=== PATIENT | female | born 1935 | race Caucasian/White ===

== ENCOUNTER 2017-04-16 10:30 | Inpatient (IN) | payer MEDICARE, OTHER ==
[2017-04-16] MEDS ORDERED: NORMAL SALINE 1000 ML 500 ML IV ONE (11:53)
--- NOTE | 2017-04-16 12:01 | ER Document Report ---
ED Medical Screen (RME) - General Mode of Arrival: Ambulatory Information source: Patient - HPI Patient complains to provider of: Chest pain Onset: This morning Associated Symptoms: Other - see notes above <DOMINIQUE CORTEZ - Last Filed: 04/16/17 13:04> <BRITTON DOMINGUEZ - Last Filed: 04/18/17 10:53> - General Chief Complaint: Chest Pain Stated Complaint: CHEST PAIN Time Seen by Provider: 04/16/17 11:51 Notes: 81 year old female (right knee replacement 04/02/2017) presents to the ED complaining of having left sided chest pain that started this morning at 0200. Patient describes the pain as a 'deep pulling sensation.' Patient's home nurse reports that the patient was complaining of a headache. Nurse noticed that the patient was having an irregular heart rate with no prior history of one. Patient reports that an EKG was done in February 2017 prior to the knee replacement showing a normal tracing. Patient denies any chest discomfort at this time. Denies any fever. Denies having pain like this in the past. (DOMINIQUE CORTEZ) - Related Data Allergies/Adverse Reactions: tetracycline Allergy (Verified 04/16/17 12:54) Past Medical History - General Information source: Patient - Social History Chew tobacco use (# tins/day): No Frequency of alcohol use: None Drug Abuse: None - Past Medical History Cardiac Medical History: Reports: Hx Hypercholesterolemia Renal/ Medical History: Denies: Hx Peritoneal Dialysis Past Surgical History: Reports: Hx Orthopedic Surgery - right knee 04/02/18 <DOMINIQUE CORTEZ - Last Filed: 04/16/17 13:04> Review of Systems - Review of Systems Constitutional: No symptoms reported. denies: Fever EENT: No symptoms reported Cardiovascular: No symptoms reported, Chest pain Respiratory: No symptoms reported Gastrointestinal: No symptoms reported Genitourinary: No symptoms reported Female Genitourinary: No symptoms reported Musculoskeletal: No symptoms reported Skin: No symptoms reported Hematologic/Lymphatic: No symptoms reported Neurological/Psychological: See HPI, Headaches -: Yes All other systems reviewed and negative <DOMINIQUE CORTEZ - Last Filed: 04/16/17 13:04> Physical Exam - General General appearance: Alert In distress: None - HEENT Head: Normocephalic, Atraumatic Eyes: Normal Extraocular movements intact: Yes Pupils: PERRL - Respiratory Respiratory status: No respiratory distress Breath sounds: Normal - Cardiovascular Rhythm: Regular Heart sounds: Normal auscultation - Extremities General upper extremity: Normal inspection, Normal ROM General lower extremity: Other - Dressing to the right lower extremity, but normal appearing.. No: Normal inspection <DOMINIQUE CORTEZ - Last Filed: 04/16/17 13:04> - Vital signs Vitals: Temp Pulse Resp BP Pulse Ox 97.8 F 90 20 130/66 H 97 04/16/17 10:45 04/16/17 10:45 04/16/17 10:45 04/16/17 10:45 04/16/17 10:45 Course - Laboratory Result Diagrams: 04/16/17 13:04 04/16/17 13:04 <BRITTON DOMINGUEZ - Last Filed: 04/18/17 10:53> - Vital Signs Vital signs: Temp Pulse Resp BP Pulse Ox 97.8 F 87 14 146/87 H 99 04/16/17 22:11 04/16/17 22:21 04/16/17 22:11 04/16/17 22:11 04/16/17 22:11 - Laboratory Laboratory results interpreted by me: 04/16/17 13:04 Glucose 112 H Doctor's Discharge <DOMINIQUE CORTEZ - Last Filed: 04/16/17 13:04> <BRITTON DOMINGUEZ - Last Filed: 04/18/17 10:53> - Discharge Clinical Impression: Bilateral pulmonary embolism Condition: Good Disposition: HOME, SELF-CARE Scribe Documentation - Scribe Written by Scribe:: Gino Rothman, 04/16/2017 1221 acting as scribe for :: Indra <DOMINIQUE CORTEZ - Last Filed: 04/16/17 13:04>
[2017-04-16 13:16] LABS: ABSOLUTE EOSINOPHILS # (AUTO) 0.2 10^3/uL (0.0-0.6); ABSOLUTE LYMPHOCYTES (AUTO) 1.6 10^3/uL (0.5-4.7); ABSOLUTE MONOCYTES (AUTO) 0.6 10^3/uL (0.1-1.4); BASOPHILS % (AUTO) 0.4 % (0-2); EOSINOPHILS % (AUTO) 1.7 % (0-6); HEMATOCRIT 37.2 % (36.0-47.0); HEMOGLOBIN 12.6 g/dL (12.0-15.5); LYMPHOCYTES % (AUTO) 16.7 % (13-45); MEAN CORPUSCULAR HEMOGLOBIN 29.9 pg (27.0-33.4); MEAN CORPUSCULAR HGB CONC 33.7 g/dL (32.0-36.0); MEAN CORPUSCULAR VOLUME 89 fl (80-97); MONOCYTES % (AUTO) 6.9 % (3-13); PLATELET COUNT 373 10^3/uL (150-450); RED BLOOD COUNT 4.19 10^6/uL (3.72-5.28); SEGMENTED NEUTROPHILS % (AUTO) 74.3 % (42-78); TOTAL CELLS COUNTED % (AUTO) 100 %; WHITE BLOOD COUNT 9.4 10^3/uL (4.0-10.5)
--- NOTE | 2017-04-16 13:18 | RADIOLOGY REPORT (SQ) ---
EXAM DESCRIPTION: CHEST PA/LAT COMPLETED DATE/TIME: 04/16/2017 1:04 pm REASON FOR STUDY: SOB COMPARISON: None. EXAM PARAMETERS: NUMBER OF VIEWS: two views TECHNIQUE: Digital Frontal and Lateral radiographic views of the chest acquired. RADIATION DOSE: NA LIMITATIONS: none FINDINGS: LUNGS AND PLEURA: No opacities, masses or pneumothorax. No pleural effusion. MEDIASTINUM AND HILAR STRUCTURES: No masses or contour abnormalities. HEART AND VASCULAR STRUCTURES: Heart normal size. No evidence for failure. BONES: No acute findings. HARDWARE: None in the chest. OTHER: No other significant finding. IMPRESSION: NO SIGNIFICANT RADIOGRAPHIC FINDING IN THE CHEST. TECHNICAL DOCUMENTATION: JOB ID: [id number] [employer]- All Rights Reserved
--- NOTE | 2017-04-16 13:18 | EKG REPORT ---
SEVERITY:- OTHERWISE NORMAL ECG - SINUS ARRHYTHMIA, RATE 69-98 : Confirmed by: Chiquita Joseph MD 16-Apr-2017 13:17:25
[2017-04-16 13:20] LABS: INTERNATIONAL RATION (INR) 0.95; PROTHROMBIN TIME 13.3 SEC (11.4-15.4)
[2017-04-16 13:40] LABS: ALANINE AMINOTRANSFERASE 34 U/L (9-52); ALBUMIN 4.2 g/dL (3.5-5.0); ALKALINE PHOSPHATASE 97 U/L (38-126); ANION GAP 7 (5-19); ASPARTATE AMINO TRANSFERASE 28 U/L (14-36); BILIRUBIN,DIRECT 0.3 mg/dL (0.0-0.4); BILIRUBIN,TOTAL 0.6 mg/dL (0.2-1.3); BLOOD UREA NITROGEN 17 mg/dL (7-20); CALCIUM 9.8 mg/dL (8.4-10.2); CARBON DIOXIDE 28 mmol/L (22-30); CHLORIDE 102 mmol/L (98-107); GLUCOSE 112 mg/dL (75-110); POTASSIUM 4.7 mmol/L (3.6-5.0); SODIUM 137.3 mmol/L (137-145); TOTAL PROTEIN 7.1 g/dL (6.3-8.2)
[2017-04-16 13:50] LABS: NT PRO BNP 94 pg/mL (<450)
[2017-04-16 13:51] LABS: TROPONIN I < 0.012 ng/mL
--- NOTE | 2017-04-16 14:28 | RADIOLOGY REPORT (SQ) ---
EXAM DESCRIPTION: CTA CHEST COMPLETED DATE/TIME: 04/16/2017 2:16 pm REASON FOR STUDY: SOB COMPARISON: Recent radiographs. TECHNIQUE: CT scan of the chest performed using helical scanning technique with dynamic intravenous contrast injection. Images reviewed with lung, soft tissue and bone windows. Reconstructed coronal and sagittal MPR images reviewed. Additional 3 dimensional post-processing performed to develop Maximal Intensity Projection images (OK P). All images stored on PACS. All CT scanners at this facility use dose modulation, iterative reconstruction, and/or weight based d osing when appropriate to reduce radiation dose to as low as reasonably achievable (ALARA). [facility]: Dose Right [facility]: CareDose [facility]: Dose Right [facility]: Teradose 4D [facility]: [employer] CONTRAST TYPE AND DOSE: contrast/concentration: Isovue 370.00 mg/ml; Total Contrast Delivered: 71.0 ml; Total Saline Delivered: 95.0 ml RENAL FUNCTION: Creatinine 0.7 RADIATION DOSE: CT Rad equipment meets quality standard of care and radiation dose reduction techniq ues were employed. CTDIvol: 13.2 - 15.2 mGy. DLP: 578 mGy-cm. . LIMITATIONS: None. FINDINGS: LUNGS AND PLEURA: No suspicious nodules or evidence of acute infiltrate. Mild areas of sc arring with minimal bronchiectasis in the right lower lobe. AORTA AND GREAT VESSELS: No aneurysm. Contrast bolus not optimized for the aorta. HEART: Cardiac enlargement. No effusion. Moderate coronary calcification. PULMONARY ARTERIES: Small filling defects are appreciated in the proximal lower lobe branches bilater ally and minimally in right upper lobe branches. No saddle embolus. Main pulmonary arteries are carol ar. HILAR AND MEDIASTINAL STRUCTURES: Shotty nodes. No enlarged nodes. HARDWARE: None in the chest. UPPER ABDOMEN: No significant findings. Limited exam. THYROID AND OTHER SOFT TISSUES: No masses. No adenopathy. BONES: No acute or significant finding. 3D MIPS: Confirm above findings. OTHER: No other significant finding. IMPRESSION: 1. Positive for mild pulmonary embolus, most notable in the proximal lower lobe pulmonar y arteries bilaterally. COMMENT: Quality ID # [id number]: Final reports with documentation of one or more dose reduction techniques (e.g., Automated exposure control, adjustment of the mA and/or kV according to patient size, use of iterative reconstruction technique) TECHNICAL DOCUMENTATION: JOB ID: [id number]- All Rights Reserved
--- NOTE | 2017-04-16 14:42 | ER Document Report ---
ED General - General Chief Complaint: Chest Pain Stated Complaint: CHEST PAIN Time Seen by Provider: 04/16/17 11:51 Mode of Arrival: Ambulatory - [facility] Patient complains to provider of: Chest pain Notes: patient coming in for evaluation chest pain ongoing since 2:00 this morning. Patient states feels like she is having muscle spasm in the twisting in the left side of her chest. Denies any shortness of breath denies any other medical issues states she has beenHer difficulty breathing. Patient is 2 weeks postop from having knee replacement surgery at [facility]. Diagnosed prediabetic however at this time no new medication resting comfortably - Related Data Allergies/Adverse Reactions: tetracycline Allergy (Verified 04/16/17 12:54) Past Medical History - General Information source: Patient - Social History Smoking Status: Former Smoker Chew tobacco use (# tins/day): No Frequency of alcohol use: None Drug Abuse: None Family History: Reviewed & Not Pertinent Patient has suicidal ideation: No Patient has homicidal ideation: No - Past Medical History Cardiac Medical History: Reports: Hx Hypercholesterolemia Renal/ Medical History: Denies: Hx Peritoneal Dialysis Past Surgical History: Reports: Hx Orthopedic Surgery - right knee 04/02/18 Review of Systems - Review of Systems Constitutional: No symptoms reported EENT: No symptoms reported Cardiovascular: Chest pain Respiratory: No symptoms reported Gastrointestinal: No symptoms reported Genitourinary: No symptoms reported Female Genitourinary: No symptoms reported Musculoskeletal: No symptoms reported Skin: No symptoms reported Hematologic/Lymphatic: No symptoms reported Neurological/Psychological: No symptoms reported Physical Exam - Vital signs Vitals: Temp Pulse Resp BP Pulse Ox 97.8 F 90 20 130/66 H 97 04/16/17 10:45 04/16/17 10:45 04/16/17 10:45 04/16/17 10:45 04/16/17 10:45 Interpretation: Normal - General General appearance: Appears well, Alert - HEENT Head: Normocephalic, Atraumatic Eyes: Normal Pupils: PERRL - Respiratory Respiratory status: No respiratory distress Chest status: Nontender Breath sounds: Normal Chest palpation: Normal - Cardiovascular Rhythm: Regular Heart sounds: Normal auscultation Murmur: No - Abdominal Inspection: Normal Distension: No distension Bowel sounds: Normal Tenderness: Nontender Organomegaly: No organomegaly - Back Back: Normal, Nontender - Extremities General upper extremity: Normal inspection, Nontender, Normal color, Normal ROM , Normal temperature General lower extremity: Nontender, Normal color, Normal ROM, Normal temperature , Normal weight bearing. No: Normal inspection - Postsurgical changes right knee, Matti's sign - Neurological Neuro grossly intact: Yes Cognition: Normal Orientation: AAOx4 Oscar Coma Scale Eye Opening: Spontaneous Oscar Coma Scale Verbal: Oriented [place] Coma Scale Motor: Obeys Commands Oscar Coma Scale Total: 15 Speech: Normal Motor strength normal: LUE, RUE, LLE, RLE Sensory: Normal - Psychological Associated symptoms: Normal affect, Normal mood - Skin Skin Temperature: Warm Skin Moisture: Dry Skin Color: Normal Course - Re-evaluation Re-evalutation: 04/16/17 15:31 CTA shows bilateral PEs. Due to patient's sense of PE load and aid discussed with hospitalist will admit the patient for anticoagulation observation. Patient agrees this plan this time. - Vital Signs Vital signs: Temp Pulse Resp BP Pulse Ox 97.8 F 90 14 153/68 H 100 04/16/17 10:45 04/16/17 10:45 04/16/17 14:24 04/16/17 14:24 04/16/17 14:24 - Laboratory Result Diagrams: 04/16/17 13:04 04/16/17 13:04 Laboratory results interpreted by me: 04/16/17 13:04 Glucose 112 H Critical Care Note - Critical Care Note Total time excluding time spent on procedures (mins): 35 Comments: Multiple evaluation for patient with PEs. Discharge - Discharge Clinical Impression: Bilateral pulmonary embolism Condition: Good Disposition: ADMITTED OBSERVATION Admitting Provider: Hospitalist - [facility] Admitted: Telemetry
[2017-04-16] MEDS ORDERED: ENOXAPARIN SODIUM INJ 80 MG/0.8 ML DISP.SYRIN SUBCUT SCH (14:45)
[2017-04-16] MEDS: OXYCODONE-ACETAMINOPHEN 5-325 MG TABLET PO PRN ×2 (16:24→21:27)
--- NOTE | 2017-04-16 16:43 | PDOC H&P ---
History of Present Illness Admission Date/PCP: 04/16/17 15:16 OSWALD GALLARDO MD Patient complains of: Chest pain History of Present Illness: RAMSEY SULLIVAN is a 81 year old female history of prediabetes who recently had right knee arthroplasty on April 02, 2017 presenting with complaint of left- sided chest pain. Patient states she woke up this morning and fell of pulling sensation in her chest. Patient PCP was called. It was asked that patient possibly taking. Patient pulse was irregular. She was advised to come to the hospital for further evaluation. Patient denied any shortness of breath or lightheadedness or dizziness. In the ED patient was found to have a tachyarrhythmia. CTA of the chest was done which showed bilateral pulmonary embolism. Hospitalist was called to admit patient for pulmonary embolism. Past Medical History Cardiac Medical History: Reports: Hyperlipidema, Other - Prediabetes Past Surgical History Past Surgical History: Reports: Orthopedic Surgery - right knee 04/02/18 Social History Smoking Status: Former Smoker - Advance Directive Resuscitation Status: Full Code Family History Family History: CAD, Other - PE in mother Parental Family History Reviewed: No Children Family History Reviewed: No Sibling(s) Family History Reviewed.: No Medication/Allergy Home Medications: Meloxicam [Mobic] 15 mg PO DAILY 04/16/17 Simvastatin [Zocor 20 mg Tablet] 20 mg PO QHS 04/16/17 Allergies/Adverse Reactions: tetracycline Allergy (Verified 04/16/17 12:54) Review of Systems Constitutional: ABSENT: chills, fever(s), headache(s), weight gain, weight loss Eyes: ABSENT: visual disturbances Ears: ABSENT: hearing changes Cardiovascular: PRESENT: chest pain. ABSENT: dyspnea on exertion, edema, orthropnea, palpitations Respiratory: ABSENT: cough, hemoptysis Gastrointestinal: ABSENT: abdominal pain, constipation, diarrhea, hematemesis, hematochezia, nausea, vomiting Genitourinary: ABSENT: dysuria, hematuria Musculoskeletal: PRESENT: joint swelling, other - Knee pain Integumentary: ABSENT: rash, wounds Neurological: ABSENT: abnormal gait, abnormal speech, confusion, dizziness, focal weakness, syncope Psychiatric: ABSENT: anxiety, depression, homidical ideation, suicidal ideation Endocrine: ABSENT: cold intolerance, heat intolerance, polydipsia, polyuria Hematologic/Lymphatic: ABSENT: easy bleeding, easy bruising Physical Exam Vital Signs: Temp Pulse Resp BP Pulse Ox 97.8 F 90 14 153/68 H 100 04/16/17 10:45 04/16/17 10:45 04/16/17 14:24 04/16/17 14:24 04/16/17 14:24 General appearance: PRESENT: no acute distress, well-developed, well-nourished Head exam: PRESENT: normocephalic Eye exam: PRESENT: PERRLA. ABSENT: scleral icterus Ear exam: PRESENT: normal external ear exam Mouth exam: PRESENT: moist Neck exam: ABSENT: carotid bruit, JVD, lymphadenopathy, thyromegaly Respiratory exam: PRESENT: clear to auscultation [place]. ABSENT: rales, rhonchi, wheezes Cardiovascular exam: PRESENT: RRR. ABSENT: diastolic murmur, rubs, systolic murmur Pulses: PRESENT: normal dorsalis pedis pul Vascular exam: PRESENT: normal capillary refill GI/Abdominal exam: PRESENT: normal bowel sounds, soft. ABSENT: distended, guarding, mass, organolmegaly, rebound, tenderness Rectal exam: PRESENT: deferred Extremities exam: PRESENT: full ROM, other - Knee tenderness surgical scar. ABSENT: calf tenderness, clubbing, pedal edema Neurological exam: PRESENT: alert, awake, oriented to person, oriented to place , oriented to time, oriented to situation, CN II-XII grossly intact, other - Hard of hearing. ABSENT: motor sensory deficit Psychiatric exam: PRESENT: appropriate affect, normal mood. ABSENT: homicidal ideation, suicidal ideation Skin exam: PRESENT: dry, intact, warm. ABSENT: cyanosis, rash Results Impressions: Chest X-Ray 04/16/17 11:53 IMPRESSION: NO SIGNIFICANT RADIOGRAPHIC FINDING IN THE CHEST. Chest/Abdomen CTA 04/16/17 11:53 IMPRESSION: 1. Positive for mild pulmonary embolus, most notable in the proximal lower lobe pulmonary arteries bilaterally. Assessment & Plan - Diagnosis (1) Bilateral pulmonary embolism Is this a current diagnosis for this admission?: Yes Plan: Mild pulmonary embolism in the proximal lower lobe pulmonary arteries bilaterally. Patient had knee surgery on April 02 and was not placed on any prophylaxis. This is thought to be a source. Patient will have cardiac echo and venous Dopplers to rule out any right heart strain and to look for any deep vein thrombosis in the lower extremities. Patient has decided on Eliquis. Patient will be started on 10 mg p.o. twice daily for 7 days and then 5 mg p.o. twice daily. Patient advised to discontinue taking aspirin as the combination of Eliquis and aspirin may increase her risk of bleeding. Patient told that there is a risk for bleeding and that she should look for dark stools, blood in urine. Advised that she may have excessive bleeding if ever she would cut herself. Patient stated that she understood. Patient family is also in the bedroom. (2) Hyperlipidemia Is this a current diagnosis for this admission?: Yes Plan: Will continue patient on statin which she takes at home. (3) Prediabetes Is this a current diagnosis for this admission?: Yes Plan: Patient being followed by her PCP for prediabetes. Patient hemoglobin A1c was 6.2. Patient is mostly managed by diet. - Time Time Spent: 50 to 70 Minutes Anticipated discharge: Home Within: within 24 hours - Inpatient Certification Medical Necessity: Risk of Complication if Not Cared For in Hospital - Patient with bilateral PEs. Patient requires further evaluation and monitoring prior to discharge home.
[2017-04-16] MEDS ORDERED: APIXABAN 5 MG TABLET PO ONE (17:00)
--- NOTE | 2017-04-16 21:31 | RADIOLOGY REPORT (SQ) ---
EXAM DESCRIPTION: VENOUS BILATERAL LOWER COMPLETED DATE/TIME: 04/16/2017 9:15 pm REASON FOR STUDY: PE COMPARISON: None. TECHNIQUE: Dynamic and static galvin scale and color images acquired of both lower extremity venous sy stems. Selected spectral images acquired with additional compression and augmentation maneuvers. Imag es stored on PACS. LIMITATIONS: None. FINDINGS: RIGHT LEG COMMON FEMORAL AND FEMORAL: Normal phasicity, compression and augmentation. No visualized echogenic m aterial on galvin scale. No defects on color images. POPLITEAL: Normal compression and augmentation. No visualized echogenic material on galvin scale. No de fects on color images. CALF VESSELS: Normal compression and augmentation. No visualized echogenic material on galvin scale. No defects on color image. GSV AND SSV: Normal compression. No visualized echogenic material on galvin scale. No defects on color images. ANY DEEP VENOUS INSUFFICIENCY: Not evaluated. ANY EVIDENCE OF POPLITEAL CYST: No. OTHER: No other significant finding. LEFT LEG COMMON FEMORAL AND FEMORAL: Normal phasicity, compression and augmentation. No visualized echogenic m aterial on galvin scale. No defects on color images. POPLITEAL: Normal compression and augmentation. No visualized echogenic material on galvin scale. No de fects on color images. CALF VESSELS: Normal compression and augmentation. No visualized echogenic material on galvin scale. No defects on color images. GSV AND SSV: Normal compression. No visualized echogenic material on galvin scale. No defects on color images. ANY DEEP VENOUS INSUFFICIENCY: Not evaluated. ANY EVIDENCE POPLITEAL CYST: No. OTHER: No other significant finding. IMPRESSION: NO EVIDENCE DVT OR SVT IN EITHER LEG. TECHNICAL DOCUMENTATION: JOB ID: [id number] [employer]- All Rights Reserved
--- NOTE | 2017-04-16 21:37 | XCELERA REPORT ---
[address] [address] Transthoracic Echocardiogram Report Name: RAMSEY SULLIVAN Age: 81 yrs Gender: Female : 1935 Patient Status: Inpatient Patient Location: [address]A Study Date: 04/16/2017 08:12 PM Height: 66 in Weight: 174 lb BSA: 1.9 m2 Procedure: A complete two-dimensional transthoracic echocardiogram was performed (2D, M-mode, spectral and color flow Doppler). The study was technically adequate with some images being suboptimal in quality. Reason For Study: PE Ordering Physician: HIMANSHU ROSS Performed By: Estephania Vila Interpretation Summary The left ventricular ejection fraction is normal. There is borderline concentric left ventricular hypertrophy. The left ventricle is grossly normal size. Doppler measurements suggest pseudonormalized left ventricular relaxation, which is associated with grade II/IV or mild to moderate diastolic dysfunction Wall motion cannot be accurately commented on, but no definite regional wall motion abnormalities noted. The right ventricle is mildly dilated. There is no pulmonic valvular stenosis. There is a mild amount of pulmonic regurgitation The right ventricular systolic function is normal. There is no mitral valve stenosis. There is a trace amount of mitral regurgitation There is no aortic valve stenosis No aortic regurgitation is present. There is a trace to mild amount of tricuspid regurgitation There is mild pulmonary hypertension by echo Right ventricular systolic pressure is estimated to be elevated at 30- 40mmHg. The aortic root is not well visualized. The inferior vena cava was not well visualized There is no pericardial effusion. MMode/2D Measurements & Calculations RVDd: 1.7 cm LVIDd: 3.9 cm FS: 30.5 % Ao root diam: 2.5 cm IVSd: 1.1 cm LVIDs: 2.7 cm EDV(Teich): 64.9 ml LVPWd: 1.0 cm ESV(Teich): 26.8 ml Ao root area: 4.9 cm2 EF(Teich): 58.6 % LA dimension: 3.0 cm Doppler Measurements & Calculations MV E max ashlee: MV P1/2t max ashlee: Ao V2 max: LV V1 max P.8 cm/sec 60.9 cm/sec 154.6 cm/sec 2.9 mmHg MV A max ashlee: MV P1/2t: 77.0 msec Ao max PG: LV V1 max: 91.0 cm/sec 9.6 mmHg 85.0 cm/sec MV E/A: 0.66 MVA(P1/2t): 2.9 cm2 MV dec slope: 231.5 cm/sec2 PA V2 max: PI end-d ashlee: TR max ashlee: 130.0 cm/sec 108.6 cm/sec 264.7 cm/sec PA max PG: TR max P.8 mmHg 28.0 mmHg Left Ventricle The left ventricle is grossly normal size. There is borderline concentric left ventricular hypertrophy. The left ventricular ejection fraction is normal. Doppler measurements suggest pseudonormalized left ventricular relaxation, which is associated with grade II/IV or mild to moderate diastolic dysfunction. Wall motion cannot be accurately commented on, but no definite regional wall motion abnormalities noted. Right Ventricle The right ventricle is mildly dilated. The right ventricular systolic function is normal. Atria The right atrium is mildly dilated. The left atrial size is normal. Interarterial septum not well visualized and not well dopplered. Cannot comment on ASD/PFO presence. Mitral Valve The mitral valve is grossly normal. There is no mitral valve stenosis. There is a trace amount of mitral regurgitation. Aortic Valve The aortic valve is not well visualized secondary to technical limitations. There is no aortic valve stenosis. No aortic regurgitation is present. Tricuspid Valve The tricuspid valve is not well visualized secondary to technical limitations. There is no tricuspid stenosis. There is a trace to mild amount of tricuspid regurgitation. There is mild pulmonary hypertension by echo. Right ventricular systolic pressure is estimated to be elevated at 30-40mmHg. Pulmonic Valve The pulmonic valve is not well visualized. There is no pulmonic valvular stenosis. There is a mild amount of pulmonic regurgitation. Great Vessels The aortic root is not well visualized. The inferior vena cava was not well visualized. Effusions There is no pericardial effusion. : HIMANSHU ROSS > [place] Jiménez
[2017-04-16] MEDS ORDERED: SIMVASTATIN 10 MG TABLET PO SCH (22:00)
[2017-04-16 22:15] VITALS: BP 146/87
--- NOTE | 2017-04-17 08:52 | PDOC DISCHARGE SUMMARY ---
General - Admit/Disc Date/PCP Admission Date/Primary Care Provider: 04/16/17 15:16 OSWALD GALLARDO MD Discharge Date: 04/16/17 - Discharge Diagnosis (1) Bilateral pulmonary embolism Is this a current diagnosis for this admission?: Yes (2) Hyperlipidemia Is this a current diagnosis for this admission?: Yes (3) Prediabetes Is this a current diagnosis for this admission?: Yes - Additional Information Resuscitation Status: Full Code Discharge Activity: Activity As Tolerated Prescriptions: Apixaban [Eliquis] 10 mg PO BID 30 Days #74 tablet Home Medications: Apixaban [Eliquis] 10 mg PO BID 30 Days #74 tablet 04/16/17 Oxycodone HCl/Acetaminophen [Percocet 5-325 mg Tablet] 1 tab PO Q4HP PRN tablet 04/16/17 Simvastatin [Zocor 20 mg Tablet] 20 mg PO QHS 04/16/17 History of Present Illness History of Present Illness: RAMSEY SULLIVAN is a 81 year old female history of prediabetes who recently had right knee arthroplasty on April 02, 2017 presenting with complaint of left- sided chest pain. Patient states she woke up this morning and fell of pulling sensation in her chest. Patient PCP was called. It was asked that patient possibly taking. Patient pulse was irregular. She was advised to come to the hospital for further evaluation. Patient denied any shortness of breath or lightheadedness or dizziness. In the ED patient was found to have a tachyarrhythmia. CTA of the chest was done which showed bilateral pulmonary embolism. Hospitalist was called to admit patient for pulmonary embolism. Original H&P was dictated by myself Dr. Gabby ulloa. Please refer to it for further details. Hospital Course Hospital Course: Patient presented with complaint of chest discomfort. CTA was completed and was found to have bilateral pulmonary embolism. Patient had cardiac echo done which showed mild right ventricular hypertrophy. Doppler of the lower extremity was negative for DVT. Patient was given her first dose of Eliquis 10 mg p.o. patient is to continue 10 mg twice a day for 6 more days and then 5 mg twice a day for 4-6 months. Patient is not to take aspirin along with this as this may increase her chance of bleeding. It was discussed with patient that she should look for signs of bleeding i.e. dark stools, bloody urine, blood in sputum etc. Patient has sinus tach which resolved with a fluid bolus. Patient was never hypoxic or tachypneic. Patient chest pain also resolved. Patient pre diabetes and hyperlipidemia were stable. Patient was stable for discharge and was discharged from the ED later on the evening. He is to follow-up with her PCP. Physical Exam Vital Signs: Temp Pulse Resp BP Pulse Ox 97.8 F 87 14 146/87 H 99 04/16/17 22:11 04/16/17 22:21 04/16/17 22:11 04/16/17 22:11 04/16/17 22:11 Results Laboratory Results: 04/16/17 04/16/17 04/16/17 13:04 13:04 13:04 WBC 9.4 RBC 4.19 Hgb 12.6 Hct 37.2 MCV 89 MCH 29.9 MCHC 33.7 RDW 14.0 Plt Count 373 Seg Neutrophils % 74.3 Lymphocytes % 16.7 Monocytes % 6.9 Eosinophils % 1.7 Basophils % 0.4 Absolute Neutrophils 7.0 Absolute Lymphocytes 1.6 Absolute Monocytes 0.6 Absolute Eosinophils 0.2 Absolute Basophils 0.0 PT INR Sodium 137.3 Potassium 4.7 Chloride 102 Carbon Dioxide 28 Anion Gap 7 BUN 17 Creatinine 0.72 Est GFR ( Amer) > 60 Est GFR (Non-Af Amer) > 60 Glucose 112 H Calcium 9.8 Total Bilirubin 0.6 Direct Bilirubin 0.3 AST 28 ALT 34 Alkaline Phosphatase 97 Troponin I < 0.012 NT-Pro-B Natriuret Pep 94 Total Protein 7.1 Albumin 4.2 04/16/17 13:04 WBC RBC Hgb Hct MCV MCH MCHC RDW Plt Count Seg Neutrophils % Lymphocytes % Monocytes % Eosinophils % Basophils % Absolute Neutrophils Absolute Lymphocytes Absolute Monocytes Absolute Eosinophils Absolute Basophils PT 13.3 INR 0.95 Sodium Potassium Chloride Carbon Dioxide Anion Gap BUN Creatinine Est GFR ( Amer) Est GFR (Non-Af Amer) Glucose Calcium Total Bilirubin Direct Bilirubin AST ALT Alkaline Phosphatase Troponin I NT-Pro-B Natriuret Pep Total Protein Albumin Impressions: Venous Doppler Study 04/16/17 00:00 IMPRESSION: NO EVIDENCE DVT OR SVT IN EITHER LEG. Chest X-Ray 04/16/17 11:53 IMPRESSION: NO SIGNIFICANT RADIOGRAPHIC FINDING IN THE CHEST. Chest/Abdomen CTA 04/16/17 11:53 IMPRESSION: 1. Positive for mild pulmonary embolus, most notable in the proximal lower lobe pulmonary arteries bilaterally. Qualifiers PATEINT BEING DISCHARGED WITH ANY OF THE FOLLOWING DIAGNOSIS?: VTE (PE or DVT) VTE patient discharged on overlapping Therapy?: Yes Plan Time Spent: Greater than 30 Minutes - Patient is being discharged home on Eliquis. Patient is to take 10 mg twice daily for the next 6 days and then 5 mg twice daily thereafter. Patient is to always look for signs of bleeding. Patient advised not to take aspirin along with Eliquis as this may increase her chances of bleeding.
[2017-04-17] MEDS ORDERED: APIXABAN 5 MG TABLET PO SCH (10:00)
== END 2017-04-16 22:20 | disposition home or self-care (01) | DRG 176 ==
LOC: ER 10:30 → OBSVTOIN 15:16 → EH 15:16
PROVIDERS: ADMIT Emergency Medicine; ATTEND Emergency Medicine
DX: I26.99 Other pulmonary embolism without acute cor pulmonale (principal); E78.00 Pure hypercholesterolemia, unspecified; R73.03 Prediabetes; Z88.3 Allergy status to other anti-infective agents; Z96.651 Presence of right artificial knee joint; Z87.891 Personal history of nicotine dependence; Z82.49 Family history of ischemic heart disease and other diseases of the circulatory system; Z83.6 Family history of other diseases of the respiratory system
CPT/HCPCS: 36415; 71046; 71275; 80053; 83880; 84484; 85025; 85610; 93005; 93010; 93306; 93970; 96360; 99291; J7030